=== PATIENT | female | born 1955 | race Caucasian/White ===

== ENCOUNTER → 2018-08-23 14:25 | Outpatient (CLI) | payer MEDICARE, OTHER, SELFPAY ==
[2018-08-23 16:44] LABS: Amphetamine Urine VISTA NEGATIVE (<1000 ng/mL); Barbiturate Urine VISTA NEGATIVE (< 200 ng/mL); Benzodiazepine Urine VISTA NEGATIVE (< 200 ng/mL); Cocaine Urine VISTA NEGATIVE (< 300 ng/mL); Ecstacy Urine VISTA NEGATIVE (< 500 ng/mL); Methadone Urine VISTA NEGATIVE (< 300 ng/mL); PCP Urine VISTA NEGATIVE (< 25 ng/mL); THC Urine VISTA NEGATIVE (< 50 ng/mL); Vista UDS pH Range 6
== END ==
PROVIDERS: Family Provider Family Medicine; PCP Family Medicine; Referring Provider Anesthesiology Pain Medicine; Visit Provider Anesthesiology Pain Medicine
DX: F11.20 Opioid dependence, uncomplicated (principal)
CPT/HCPCS: 80307

== ENCOUNTER → 2019-03-09 12:56 | Outpatient (CLI) | payer MEDICARE, OTHER, SELFPAY ==
--- NOTE | 2019-03-09 13:03 | RAD_ITS ---
STUDY: X-RAY - LUMBAR SPINE REASON FOR EXAM: Female, 63 years old. Lower back pain, recent fall TECHNIQUE: 2 view(s) of the lumbar spine were obtained. COMPARISON: None FINDINGS: Cholecystectomy. Anastomotic staple line left upper quadrant of the abdomen, anastomotic kayleigh in the epigastrium with surgical clips. Osteopenia. L2-S1 posterior swapna and pedicle screw fixation. The surgical construct appears intact. Mild upper thoracic scoliosis. Normal lumbar lordosis. Mild grade 1 anterior listhesis of L3-L4. No significant intervertebral disc space narrowing. RAD/Lumbar Spine 2 or 3 Views IMPRESSION: Surgical construct intact. No acute fracture or traumatic subluxation. Electronically Signed: Willian Sow MD at 13:45 EDT Tel , Service support ,
== END ==
PROVIDERS: Family Provider Family Medicine; PCP Family Medicine; Referring Provider Anesthesiology Pain Medicine; Visit Provider Anesthesiology Pain Medicine
DX: M54.5 Low back pain (principal); W19.XXXA Unspecified fall, initial encounter
CPT/HCPCS: 72100

== ENCOUNTER → 2019-07-18 13:12 | Outpatient (CLI) | payer MEDICARE, OTHER, SELFPAY ==
--- NOTE | 2019-07-18 13:15 | RAD_ITS ---
STUDY: X-RAY - LUMBAR SPINE REASON FOR EXAM: Female, 63 years old. FALL SEVERAL YEARS AGO CHRONIC LOWER BACK PAIN. MULTIPLE SURGERIES. TECHNIQUE: 3 view(s) of the lumbar spine were obtained. COMPARISON: 03/09/2019 FINDINGS: Diffuse osteopenia. Normal lumbar lordosis. There is no substantial scoliosis. Grade 1 anterolisthesis of L3 on L4 and a grade 1 retrolisthesis of L2 on L3. Prior pedicle screw placement at L2, L4, L5 and S1 levels. Increased lucency around the screws at L2, now measuring 4 mm, previously 3.6 mm, concerning for increase in extent of loosening. There is multilevel endplate spondylosis of the lumbar vertebrae. There is multi-level degenerative disc disease with multi-level disc space narrowing. There is no demonstrated fracture. The soft tissue structures are unremarkable. RAD/Lumbar Spine 2 or 3 Views IMPRESSION: No acute displaced fracture, or traumatic subluxation based on current assessment. Increased lucency around the screws at L2, now measuring 4 mm, previously 3.6 mm, concerning for increase in extent of loosening. Electronically Signed: Jean Barragan MD at 13:57 EST Tel [phone], Service support ,
== END ==
PROVIDERS: Family Provider Family Medicine; PCP Family Medicine; Referring Provider Anesthesiology Pain Medicine; Visit Provider Anesthesiology Pain Medicine
DX: M54.9 Dorsalgia, unspecified (principal)
CPT/HCPCS: 72100

== ENCOUNTER → 2019-10-11 10:16 | Outpatient (CLI) | payer MEDICARE, OTHER, SELFPAY ==
[2019-10-11 11:48] LABS: Amphetamine Urine VISTA NEGATIVE (<1000 ng/mL); Barbiturate Urine VISTA NEGATIVE (< 200 ng/mL); Benzodiazepine Urine VISTA NEGATIVE (< 200 ng/mL); Cocaine Urine VISTA NEGATIVE (< 300 ng/mL); Ecstacy Urine VISTA POSITIVE (< 500 ng/mL); Methadone Urine VISTA NEGATIVE (< 300 ng/mL); PCP Urine VISTA NEGATIVE (< 25 ng/mL); THC Urine VISTA NEGATIVE (< 50 ng/mL); Vista UDS pH Range 6
== END ==
PROVIDERS: PCP Family Medicine; Referring Provider Anesthesiology Pain Medicine; Visit Provider Anesthesiology Pain Medicine
DX: F11.20 Opioid dependence, uncomplicated (principal)
CPT/HCPCS: 80307

== ENCOUNTER → 2020-02-01 15:58 | Outpatient (CLI) | payer MEDICARE, OTHER, SELFPAY ==
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
== END ==
PROVIDERS: PCP Family Medicine; Referring Provider Anesthesiology Pain Medicine; Visit Provider Anesthesiology Pain Medicine
DX: M47.812 Spondylosis without myelopathy or radiculopathy, cervical region (principal); M50.31 Other cervical disc degeneration, high cervical region; M48.02 Spinal stenosis, cervical region
CPT/HCPCS: 72040

== ENCOUNTER → 2020-06-14 11:58 | Outpatient (CLI) | payer MEDICARE, OTHER, SELFPAY ==
[2020-06-14 14:16] LABS: Amphetamine Urine VISTA NEGATIVE (<1000 ng/mL); Barbiturate Urine VISTA NEGATIVE (< 200 ng/mL); Benzodiazepine Urine VISTA NEGATIVE (< 200 ng/mL); Cocaine Urine VISTA NEGATIVE (< 300 ng/mL); Ecstacy Urine VISTA POSITIVE (< 500 ng/mL); Methadone Urine VISTA NEGATIVE (< 300 ng/mL); PCP Urine VISTA NEGATIVE (< 25 ng/mL); THC Urine VISTA NEGATIVE (< 50 ng/mL); Vista UDS pH Range 5
== END ==
PROVIDERS: PCP Family Medicine; Referring Provider Anesthesiology Pain Medicine; Visit Provider Anesthesiology Pain Medicine
DX: F11.20 Opioid dependence, uncomplicated (principal)
CPT/HCPCS: 80307

== ENCOUNTER → 2021-04-04 12:29 | Outpatient (CLI) | payer MEDICARE, OTHER, SELFPAY ==
[2021-04-04 13:26] LABS: Amphetamine Urine VISTA NEGATIVE (<1000 ng/mL); Barbiturate Urine VISTA NEGATIVE (< 200 ng/mL); Benzodiazepine Urine VISTA NEGATIVE (< 200 ng/mL); Cocaine Urine VISTA NEGATIVE (< 300 ng/mL); Ecstacy Urine VISTA NEGATIVE (< 500 ng/mL); Methadone Urine VISTA NEGATIVE (< 300 ng/mL); PCP Urine VISTA NEGATIVE (< 25 ng/mL); THC Urine VISTA NEGATIVE (< 50 ng/mL); Vista UDS pH Range 5
== END ==
PROVIDERS: PCP Family Medicine; Referring Provider Anesthesiology Pain Medicine; Visit Provider Anesthesiology Pain Medicine
DX: F11.20 Opioid dependence, uncomplicated (principal)
CPT/HCPCS: 80307

== ENCOUNTER → 2021-05-02 10:41 | Outpatient (CLI) | payer MEDICARE, OTHER, SELFPAY ==
--- NOTE | 2021-05-02 10:44 | RAD_ITS ---
STUDY: X-RAY - LUMBAR SPINE REASON FOR EXAM: Female, 65 years old. Low back pain, previous surgeries TECHNIQUE: 3 view(s) of the lumbar spine were obtained. COMPARISON: 11/19/2020 FINDINGS: Stable pedicle screws at L2, L4, L5 and S1. No hardware complication or failure Normal lumbar lordosis. There is no substantial scoliosis. There is a normal alignment of the vertebrae. There is multilevel endplate spondylosis of the lumbar vertebrae. There is multi-level degenerative disc disease with multi-level disc space narrowing. There is no demonstrated acute fracture. The soft tissue structures are unremarkable. RAD/Lumbar Spine 2 or 3 Views IMPRESSION: Multilevel degenerative and postsurgical changes in the lumbar spine, no acute findings or significant change since the previous study. Electronically Signed: Stevan Diaz MD at 11:41 EDT , Service support ,
== END ==
PROVIDERS: PCP Family Medicine; Referring Provider Anesthesiology Pain Medicine; Visit Provider Anesthesiology Pain Medicine
DX: M47.816 Spondylosis without myelopathy or radiculopathy, lumbar region (principal); M51.36 Other intervertebral disc degeneration, lumbar region
CPT/HCPCS: 72100

== ENCOUNTER 2022-03-14 11:56 | Day surgery (SDC) | payer MEDICARE, OTHER, SELFPAY ==
[2022-03-14] VITALS (9 sets, daily range): BP systolic 125–166; BP diastolic 79–106; PULSE 61–95; RESP 16–18; TEMP 36.3–37; O2SAT 93–98; BMI 33.6
[2022-03-14] MEDS: Lactated Ringers 1,000 ML 15 ML IV (12:31)
--- NOTE | 2022-03-14 13:45 | RAD_ITS ---
PROCEDURE: Insertion spinal cord stimulator DATE OF EXAMINATION: 03/14/2022 INDICATION: Female, 66 years old. Chronic back pain. FLUOROSCOPY TIME (if supplied): (8 minutes and 40 seconds) minutes/seconds RAD/Lumbar Spine 2 or 3 Views IMPRESSION: Intraoperative imaging provided for spinal cord stimulator insertion. Electronically Signed: Shola Martin MD at 15:37 EDT ,
[2022-03-14] MEDS: Bupivacaine 0.25% 30 ML Vial (14:19)
[2022-03-14] MEDS: Lidocaine 1% /Epi 1:100 (20ml) 20 ML Vial (14:19)
[2022-03-14] MEDS: Ondansetron ODT 4 MG Tablet PO (18:33)
== END 2022-03-14 18:39 | disposition home or self-care (01) ==
LOC: SDC 12:03 → AC 12:04
PROVIDERS: PCP Family Medicine; Referring Provider Anesthesiology Pain Medicine; Visit Provider Anesthesiology Pain Medicine
PROC: (CPT 63685; principal; 2022-03-14 13:30)
DX: M54.16 Radiculopathy, lumbar region (principal); M96.1 Postlaminectomy syndrome, not elsewhere classified; M51.36 Other intervertebral disc degeneration, lumbar region; G89.4 Chronic pain syndrome; I10 Essential (primary) hypertension; Z79.82 Long term (current) use of aspirin; Z79.891 Long term (current) use of opiate analgesic; Z79.899 Other long term (current) drug therapy
CPT/HCPCS: 63685; 63650; 00630; 72100; 76000; C1778; C1820; J7120; J2405; J3490

== ENCOUNTER → 2022-05-28 | Outpatient (CLI) | payer MEDICARE, OTHER, SELFPAY ==
[2022-05-28 15:42] LABS: Amphetamine Urine VISTA NEGATIVE (<1000 ng/mL); Barbiturate Urine VISTA NEGATIVE (< 200 ng/mL); Benzodiazepine Urine VISTA NEGATIVE (< 200 ng/mL); Cocaine Urine VISTA NEGATIVE (< 300 ng/mL); Ecstacy Urine VISTA NEGATIVE (< 500 ng/mL); Methadone Urine VISTA NEGATIVE (< 300 ng/mL); PCP Urine VISTA NEGATIVE (< 25 ng/mL); THC Urine VISTA NEGATIVE (< 50 ng/mL); Vista UDS pH Range 6
== END | disposition home or self-care (01) ==
LOC: LAB 14:23
PROVIDERS: PCP Family Medicine; Visit Provider Anesthesiology Pain Medicine
DX: F11.20 Opioid dependence, uncomplicated (principal)
CPT/HCPCS: 80307

== ENCOUNTER → 2022-11-10 | Outpatient (CLI) | payer MEDICARE, OTHER, SELFPAY ==
[2022-11-10 10:21] LABS: Absolute Lymphocyte Count 2.15 X10^3/uL (0.83-4.51); Absolute Neutrophil Count 2.3 X10^3/uL (2.0-7.7); Basophil# 0.06 X10^3/uL; Basophil% 1.2 % (0-1); Eosinophil# 0.14 X10^3/uL; Eosinophils% 2.7 % (0-5); Hematocrit 41.8 % (37-47); Hemoglobin 14.1 g/dL (12.0-15.0); Lymphocyte # 2.15 X10^3/ul (0.83-4.51); Lymphocyte % 41.3 % (19-41); Mean Corp Hgb Conc 33.7 g/dL (32-36); Mean Corpuscular Hgb 29.7 pg (27.0-32.0); Mean Corpuscular Volume 88.2 fL (81-99); Mean Platelet Vol. 9.4 fl (6.2-12.0); Monocyte# 0.54 X10^3/uL; Monocyte% 10.4 % (0-10); NRBC Flagged by Analyzer 0 % (0-5); Neutrophil # 2.31 X10^3/uL (2.7-7.7); Neutrophil % 44.2 % (47-70); Platelet Count 210 K/mm3 (150-450); RBC Distribution Width CV 12.3 % (11.6-14.6); RBC Distribution Width SD 39.8 fl (35.1-43.9); Red Blood Count 4.74 M/mm3 (4.2-5.4); White Blood Count 5.2 K/mm3 (4.4-11.0)
[2022-11-10 10:24] LABS: Erythrocyte Sedimentation Rate 5 mm/hr (0-30)
[2022-11-10 10:53] LABS: CRP < 2.90 mg/L (0.0-3.0)
== END | disposition home or self-care (01) ==
LOC: LAB 09:44
PROVIDERS: PCP Family Medicine; Referring Provider Specialist; Visit Provider Specialist
DX: M25.562 Pain in left knee (principal); Z96.652 Presence of left artificial knee joint
CPT/HCPCS: 36415; 85025; 85652; 86140

== ENCOUNTER → 2023-04-29 | Outpatient (CLI) | payer MEDICARE, OTHER, SELFPAY ==
--- NOTE | 2023-04-29 06:46 | MRI_ITS ---
STUDY: MRI LUMBAR SPINE WITHOUT CONTRAST REASON FOR EXAM: Female, 67 years old. Constant lower to mid back pain. TECHNIQUE: Standardized fat and water weighted pulse sequences were obtained in the sagittal and axial planes. COMPARISON: Lumbar spine radiographs 10/02/2021. FINDINGS: T10-T11: (Sagittal only). Normal partially included posterior T10 inferior endplate. Normal T11 superior endplate. Normal disc height and morphology. Normal central canal and the partially included bilateral lateral intervertebral neural foramina. T11-T12: (Sagittal only). Normal endplates. Normal disc height and morphology. Normal central canal and bilateral intervertebral neural foramina. Signal distortion artifacts behind the spinous process of T11 may represent epidural wire catheter placement. T12-L1: (Sagittal only). Normal endplates. Normal disc height. Minimal ventral extradural defect is posterior bulging annulus. Normal central canal and intervertebral neural foramina. Normal lumbar lordosis. There is no substantial scoliosis. Normal conus medullaris that terminates at the lower T12 vertebral body level. L1-2: Modic type III degenerative sclerosis of the vertebral marrow underneath the vertebral endplates. Pronounced disc space height narrowing. Mild ventral extradural defect due to posterior marginal spurs. L2 pedicular screws and rods causing signal distortion artifacts. Moderately pronounced central canal stenosis with an AP canal diameter of 4.7 mm. Normal bilateral lateral recesses. Moderate stenosis of the bilateral intervertebral neural foramina. L2-3: Normal endplates. Normal disc height and morphology. Postsurgical absence of the spinous processes and lamina. L2 pedicular screws and rods causing signal distortion artifacts. Capacious central canal and bilateral lateral recesses. Normal bilateral intervertebral neural foramina. L3-4: Normal endplates. Normal disc height. Mild anterolisthesis of L3 on L4. Postsurgical absence of the spinous processes and lamina. Capacious central canal and bilateral lateral recesses. Normal bilateral intervertebral neural foramina. L4-5: Normal endplates. Normal disc height, hydration and morphology. Postsurgical absence of the spinous processes and lamina. Pedicular screws and rods causing signal distortion artifacts. Capacious central canal and bilateral lateral recesses. Normal bilateral intervertebral neural foramina. L5-S1: Normal endplates. Normal disc height, hydration and morphology. Postsurgical absence of the spinous processes and lamina. Capacious central canal and bilateral lateral recesses. Normal bilateral intervertebral neural foramina. Pedicular screws and rods causing signal distortion artifacts. Normal visualized sacral ala. Normal visualized paraspinous soft tissue structures. MRI/Spine Lumbar (Routine) IMPRESSION: 1. Moderately pronounced central canal stenosis at L1-L2 disc space level with an AP canal diameter of 4.7 mm and moderate stenosis of the bilateral intervertebral neural foramina. 2. No MRI evidence of lumbar extruded disc fragment. 3. Capacious central canal in the remainder of the lumbar spine and the lower thoracic spine. Electronically Signed: Jarad Muse MD at 14:10 EDT ,
== END | disposition home or self-care (01) ==
PROVIDERS: PCP Family Medicine; Referring Provider Orthopaedic Surgery; Visit Provider Orthopaedic Surgery
DX: M54.17 Radiculopathy, lumbosacral region (principal)
CPT/HCPCS: 72148

== ENCOUNTER → 2023-05-28 | Outpatient (CLI) | payer MEDICARE, OTHER, SELFPAY ==
--- NOTE | 2023-05-28 10:06 | RAD_ITS ---
STUDY: X-RAY - THORACIC SPINE REASON FOR EXAM: Female, 67 years old. Mid back pain following a fall. TECHNIQUE: 3 view(s) of the thoracic spine were obtained. COMPARISON: None. FINDINGS: There is an increase in the normal thoracic kyphosis. There is no substantial scoliosis. There is demineralization of the thoracic spine with endplate spondylosis. Mild degree of loss of height of mid dorsal vertebrae. There is multilevel disc space narrowing of the thoracic spine. Electrodes from a spinal stenotic device are seen. The tip is at the T6-T7 level. RAD/Thoracic Spine 3 Views IMPRESSION: Multilevel degenerative changes with increased kyphosis. Mild degree of volume loss of height of the mid dorsal vertebrae. Electronically Signed: Shola Martin MD at 14:22 EDT ,
== END | disposition home or self-care (01) ==
LOC: RAD 10:05
PROVIDERS: PCP Family Medicine; Referring Provider Anesthesiology Pain Medicine; Visit Provider Anesthesiology Pain Medicine
DX: M54.6 Pain in thoracic spine (principal); W19.XXXA Unspecified fall, initial encounter
CPT/HCPCS: 72072

== ENCOUNTER → 2023-06-30 | Outpatient (CLI) | payer MEDICARE, OTHER, SELFPAY ==
[2023-06-30 12:36] LABS: Amphetamine Urine VISTA NEGATIVE (<1000 ng/mL); Barbiturate Urine VISTA NEGATIVE (< 200 ng/mL); Benzodiazepine Urine VISTA NEGATIVE (< 200 ng/mL); Cocaine Urine VISTA NEGATIVE (< 300 ng/mL); Ecstacy Urine VISTA NEGATIVE (< 500 ng/mL); Methadone Urine VISTA NEGATIVE (< 300 ng/mL); PCP Urine VISTA NEGATIVE (< 25 ng/mL); THC Urine VISTA NEGATIVE (< 50 ng/mL); Vista UDS pH Range 5
== END | disposition home or self-care (01) ==
LOC: LAB 11:11
PROVIDERS: PCP Family Medicine; Referring Provider Anesthesiology Pain Medicine; Visit Provider Anesthesiology Pain Medicine
DX: F11.20 Opioid dependence, uncomplicated (principal)
CPT/HCPCS: 80307